=== PATIENT | male | born 1960 | race Caucasian/White ===

== ENCOUNTER 2016-08-07 10:02 | Emergency (ER) | payer OTHER ==
[~2016-08-07] VITALS: Ht 167.6 cm; Wt 84.8 kg
[2016-08-07 10:14] VITALS: BP 116/83
--- NOTE | 2016-08-07 10:24 | NUR ---
PATIENT PRESENTS TO ED WITH OCCIPITAL HEADACHE WITH MILD DIZZINESS X 1 WK;DENIES N/V, DECREASED APPETITE;HX OF SPONDYLITIS, RITTER'S DISEASE, HYPERLIPIDEMIA, HTN RX OF LISINOPRIL, NORCO, MUSCLE RELAXER, AMLODIPINE;SKIN IS PINK/WARM/DRY; AAOX4 WITH EVEN AND STEADY GAIT; LUNGS CLEAR BL; HR EVEN AND REGULAR; PT DENIES ANY FEVER, CP, SOB, OR COUGH AT THIS TIME; PATIENT STATES PAIN OF 10/10 OCCIPITAL HEADACHE AT THIS TIME;PATIENT POSITIONED FOR COMFORT; HOB ELEVATED; BEDRAILS UP X2; BED DOWN.
--- NOTE | 2016-08-07 10:25 | NUR ---
Patient to bed 07.
--- NOTE | 2016-08-07 10:28 | NUR ---
Dr. Phelps evaluating patient at bedside.
--- NOTE | 2016-08-07 10:30 | NUR ---
VERBAL ORDER OF 1 MG DILAUDID IM AND 4 MG ZOFRAN.
[2016-08-07] MEDS ORDERED: HYDROmorphone PFS 2 MG/ML SYR IM ONE (10:35)
[2016-08-07] MEDS ORDERED: ONDANSETRON 4 MG ODT PO ONE ×2 (10:35)
[2016-08-07] MEDS ORDERED: HYDROmorphone 1 MG/ML AMP ONE (10:39)
[2016-08-07] MEDS ORDERED: ONDANSETRON 4 MG/2 ML VIAL ONE (10:40)
[2016-08-07 11:20] VITALS: BP 133/98
--- NOTE | 2016-08-07 11:20 | NUR ---
Patient discharged with v/s stable. Written and verbal after care instructions given and explained. Patient alert, oriented and verbalized understanding of instructions. Ambulatory with steady gait. All questions addressed prior to discharge. ID band removed. Patient advised to follow up with PMD. Rx of GABAPENTIN,ZOFRAN AND NORCO given. Patient educated on indication of medication including possible reaction and side effects. Opportunity to ask questions provided and answered.
[2016-08-07] MEDS ORDERED: ONDANSETRON 4 MG/2 ML VIAL IM ONE (11:25)
== END 2016-08-07 11:20 | disposition home or self-care (01) ==
LOC: MED 10:02
DX: R51 Headache (principal); M54.2 Cervicalgia; G89.29 Other chronic pain; L00 Staphylococcal scalded skin syndrome; L49.0 Exfoliation due to erythematous condition involving less than 10 percent of body surface; E78.5 Hyperlipidemia, unspecified
CPT/HCPCS: 96372; 99283; J1170; J2405

== ENCOUNTER 2016-12-23 12:13 | Emergency (ER) | payer OTHER ==
[~2016-12-23] VITALS: Ht 165.1 cm; Wt 88.5 kg
[~2016-12-23 12:13] MED LIST: ACET-5636 PO; CEPH250C16 PO; DOCU-299 PO
[2016-12-23 12:27] VITALS: BP 142/87
--- NOTE | 2016-12-23 14:05 | NUR ---
Patient to bed 06.
--- NOTE | 2016-12-23 14:08 | NUR ---
56/m bib girlfriend c/o numbness to right 5th digit/ swelling x 12/14/2016 and admitted ,<3 sec cap refill s/p puncture wound by sting ray---rx keflex, hx--spondylitis, arthritis, rx---gabapentin, percocet.AAOX4 WITH EVEN AND STEADY GAIT; LUNGS CLEAR BL; HR EVEN AND REGULAR; PATIENT STATES PAIN OF 0/10 AT THIS TIME; VSS; PATIENT POSITIONED FOR COMFORT; HOB ELEVATED; BEDRAILS UP X2; BED DOWN. ER MD MADE AWARE OF PT STATUS.
[2016-12-23] MEDS ORDERED: predniSONE 20 MG TAB PO ONE (14:25)
[2016-12-23 14:50] VITALS: BP 158/100
--- NOTE | 2016-12-23 14:50 | NUR ---
Patient discharged with BP 158/100; DENIES HEADACHE OR DIZINESS AT THIS TIME; MADE AWARE. Written and verbal after care instructions given and explained. Patient alert, oriented and verbalized understanding of instructions. Ambulatory with steady gait. All questions addressed prior to discharge. ID band removed. Patient advised to follow up with PMD. Rx of PREDNISONE given. Patient educated on indication of medication including possible reaction and side effects. Opportunity to ask questions provided and answered.
== END 2016-12-23 14:50 | disposition home or self-care (01) ==
LOC: MED 12:13
DX: T78.49XA Other allergy, initial encounter (principal); M79.89 Other specified soft tissue disorders; I10 Essential (primary) hypertension; Z79.899 Other long term (current) drug therapy; W56.81XA Bitten by other nonvenomous marine animals, initial encounter
CPT/HCPCS: 73130; 99284; J7512